=== PATIENT | male | born 1950 | race Caucasian/White ===

== ENCOUNTER → 2017-03-09 18:57 | Outpatient (CLI) | payer OTHER ==
[~2017-03-09 18:57] MED LIST: KEFLEX500 MG PO; METFORMIN HCL1000 MG PO; METFORMIN HCL500 MG; PERCOCET 5/3251 TAB PO; TAMS0.4C PO
== END | disposition home or self-care (01) ==
LOC: RAD 18:57
DX: I11.9 Hypertensive heart disease without heart failure (principal); E11.9 Type 2 diabetes mellitus without complications

== ENCOUNTER 2017-08-08 09:22 | Outpatient (CLI) | payer OTHER | END 2017-08-08 09:27 | disposition home or self-care (01) | LOC: LAB 09:22 | DX: N40.1 Benign prostatic hyperplasia with lower urinary tract symptoms (principal); I11.9 Hypertensive heart disease without heart failure; E11.9 Type 2 diabetes mellitus without complications; E78.2 Mixed hyperlipidemia; E03.8 Other specified hypothyroidism; D50.8 Other iron deficiency anemias; N18.2 Chronic kidney disease, stage 2 (mild); I10 Essential (primary) hypertension ==

== ENCOUNTER 2017-08-08 10:31 | Outpatient (CLI) | payer OTHER | END 2017-08-08 10:35 | disposition home or self-care (01) | LOC: SONOGRAMA 10:31 | DX: N18.3 Chronic kidney disease, stage 3 (moderate) (principal); N20.0 Calculus of kidney ==

== ENCOUNTER 2018-05-05 07:45 | Emergency (ER) | payer OTHER ==
[~2018-05-05] VITALS: Ht 177.8 cm; Wt 83.5 kg
[2018-05-05] MEDS ORDERED: VASOTEC5 MG (08:29)
== END 2018-05-05 09:30 | disposition home or self-care (01) ==
LOC: ER 07:45
DX: I16.1 Hypertensive emergency (principal); I10 Essential (primary) hypertension

== ENCOUNTER → 2018-08-01 15:28 | Outpatient (CLI) | payer OTHER ==
[~2018-08-01 15:28] MED LIST changes: +VASOTEC5 MG
== END | disposition home or self-care (01) ==
LOC: LAB 07-31 15:24
DX: E03.8 Other specified hypothyroidism (principal); D50.8 Other iron deficiency anemias; E78.2 Mixed hyperlipidemia; I11.9 Hypertensive heart disease without heart failure; E56.8 Deficiency of other vitamins; N39.0 Urinary tract infection, site not specified; Z12.11 Encounter for screening for malignant neoplasm of colon; E55.9 Vitamin D deficiency, unspecified; N19 Unspecified kidney failure; E11.9 Type 2 diabetes mellitus without complications; R80.8 Other proteinuria; C18.0 Malignant neoplasm of cecum; K92.1 Melena

== ENCOUNTER 2018-11-04 07:41 | Outpatient (CLI) | payer OTHER | END 2018-11-04 07:48 | disposition home or self-care (01) | LOC: LAB 07:41 | DX: D50.8 Other iron deficiency anemias (principal); E03.8 Other specified hypothyroidism; E78.2 Mixed hyperlipidemia; I11.9 Hypertensive heart disease without heart failure; E56.8 Deficiency of other vitamins; N39.0 Urinary tract infection, site not specified; Z12.11 Encounter for screening for malignant neoplasm of colon; E55.9 Vitamin D deficiency, unspecified; N19 Unspecified kidney failure; E11.9 Type 2 diabetes mellitus without complications; R80.8 Other proteinuria; C18.0 Malignant neoplasm of cecum; K92.1 Melena ==

== ENCOUNTER → 2018-12-16 16:04 | Outpatient (CLI) | payer OTHER | END | disposition home or self-care (01) | LOC: LAB 16:04 | DX: E03.8 Other specified hypothyroidism (principal) ==

== ENCOUNTER 2018-12-17 14:33 | Outpatient (CLI) | payer OTHER | END 2018-12-17 14:40 | disposition home or self-care (01) | LOC: SONOGRAMA 14:33 | DX: E03.8 Other specified hypothyroidism (principal); E04.2 Nontoxic multinodular goiter ==

== ENCOUNTER → 2018-12-26 11:15 | Outpatient (CLI) | payer OTHER | END | disposition home or self-care (01) | LOC: LAB 11:15 | DX: E21.0 Primary hyperparathyroidism (principal) ==

== ENCOUNTER → 2019-01-14 08:09 | Outpatient (CLI) | payer OTHER | END | disposition home or self-care (01) | LOC: LAB 08:09 | DX: E21.0 Primary hyperparathyroidism (principal) ==

== ENCOUNTER 2019-05-04 05:26 | Emergency (ER) | payer OTHER ==
[~2019-05-04] VITALS: Ht 177.8 cm; Wt 81.6 kg
== END 2019-05-04 18:22 | disposition home or self-care (01) ==
LOC: ER 05:26
DX: R07.89 Other chest pain (principal); R53.1 Weakness; T40.5X Poisoning by, adverse effect of and underdosing of cocaine; Y92.89 Other specified places as the place of occurrence of the external cause

== ENCOUNTER 2019-07-18 15:22 | Outpatient (CLI) | payer OTHER ==
[~2019-07-18 15:22] MED LIST changes: +ENALAPRIL MALEAT5 MG PO; +FORTAMET500 MG PO
== END 2019-07-18 15:31 | disposition home or self-care (01) ==
LOC: RAD 15:22
PROVIDERS: ATTEND General Practice
DX: M25.551 Pain in right hip (principal); M54.5 Low back pain

== ENCOUNTER 2019-07-31 11:30 | Outpatient (CLI) | payer OTHER | END 2019-07-31 11:42 | disposition home or self-care (01) | LOC: MRI 11:30 | PROVIDERS: ATTEND Internal Medicine | DX: M54.5 Low back pain (principal); S32.030A Wedge compression fracture of third lumbar vertebra, initial encounter for closed fracture | CPT/HCPCS: 72148 ==

== ENCOUNTER → 2019-07-31 12:43 | Outpatient (CLI) | payer OTHER | END | disposition home or self-care (01) | LOC: LAB 12:43 | PROVIDERS: ATTEND Internal Medicine | DX: D64.89 Other specified anemias (principal); I10 Essential (primary) hypertension; E11.9 Type 2 diabetes mellitus without complications; E78.00 Pure hypercholesterolemia, unspecified; N39.0 Urinary tract infection, site not specified; E55.9 Vitamin D deficiency, unspecified; R80.8 Other proteinuria; Z12.11 Encounter for screening for malignant neoplasm of colon; R19.5 Other fecal abnormalities; N40.0 Benign prostatic hyperplasia without lower urinary tract symptoms ==

== ENCOUNTER 2019-08-04 16:17 | Outpatient (CLI) | payer OTHER | END 2019-08-04 16:27 | disposition home or self-care (01) | LOC: SONOGRAMA 16:17 | PROVIDERS: ATTEND Internal Medicine | DX: E04.1 Nontoxic single thyroid nodule (principal) ==

== ENCOUNTER 2021-03-14 11:04 | Outpatient (CLI) | payer OTHER | END 2021-03-14 11:05 | disposition home or self-care (01) | LOC: TOM 11:04 | PROVIDERS: ATTEND Internal Medicine Cardiovascular Disease | DX: I10 Essential (primary) hypertension (principal); R41.2 Retrograde amnesia; G30.8 Other Alzheimer's disease ==

== ENCOUNTER 2023-03-06 10:02 | Outpatient (CLI) | payer OTHER | END 2023-03-06 10:08 | disposition home or self-care (01) | LOC: SONOGRAMA 10:02 | PROVIDERS: ATTEND Surgery | DX: N12 Tubulo-interstitial nephritis, not specified as acute or chronic (principal) ==

== ENCOUNTER → 2023-10-14 | Emergency (ER) | payer OTHER ==
[~2023-10-14] VITALS: Ht 175.3 cm; Wt 74.8 kg
[~2023-10-14] MED LIST changes: +CHILDREN'S ASPI81 MG; +GLUMETZA500 MG; +METFORMIN HCL500 M3; +METFORMIN HCL500 M3 PO; +VASOTEC10 MG; +VASOTEC10 MG PO
[2023-10-14 11:35] LABS: HEMATOCRIT 38.4 % (39.0-48.0); HEMOGLOBIN 13.3 g/dL (13-16.00); MEAN CELL VOLUME 90.3 fL (80.0-100.00); MEAN CORPUSCULAR HEMOGLOBIN 31.3 pg (27.00-32.0); MEAN CORPUSCULAR HGB CONC 34.7 g/dl (32.0-36.0); PLATELET COUNT 190 K/uL (150-450); RED BLOOD COUNT 4.25 M/uL (4.00-6.00)
[2023-10-14 12:03] LABS: CALCIUM 8.7 mg/dL (8.5-10.1); CREATININE SERUM 0.7 mg/dL (0.70-1.30); GFR 110.54; POTASSIUM 3.91 mEq/L (3.5-5.1)
== END | disposition home or self-care (01) ==
LOC: ER 10:09
PROVIDERS: General Practice
DX: I10 Essential (primary) hypertension (principal); T60.91XA Toxic effect of unspecified pesticide, accidental (unintentional), initial encounter

== ENCOUNTER 2023-11-06 15:19 | Outpatient (CLI) | payer OTHER | END 2023-11-06 15:20 | disposition home or self-care (01) | LOC: SONOGRAMA 15:19 | PROVIDERS: ATTEND Urology | DX: N40.0 Benign prostatic hyperplasia without lower urinary tract symptoms (principal) ==

== ENCOUNTER 2023-11-06 16:07 | Outpatient (CLI) | payer OTHER | END 2023-11-06 16:14 | disposition home or self-care (01) | LOC: LAB 16:07 | PROVIDERS: ATTEND Urology | DX: N40.0 Benign prostatic hyperplasia without lower urinary tract symptoms (principal) ==

== ENCOUNTER 2023-12-11 13:02 | Emergency (ER) | payer OTHER ==
[~2023-12-11] VITALS: Ht 175.3 cm; Wt 74.8 kg
[2023-12-11] MEDS ORDERED: DIPHENHYDRAMINE HCL 50 MG/ML VIAL 1ML IV STA (13:50)
[2023-12-11] MEDS ORDERED: DEXAMETHASONE SODIUM PHOSPHATE 4 MG/ML VIAL IV STA (13:51)
[2023-12-11 14:50] LABS: HEMATOCRIT 39.9 % (39.0-48.0); HEMOGLOBIN 13.7 g/dL (13-16.00); MEAN CELL VOLUME 91.5 fL (80.0-100.00); MEAN CORPUSCULAR HEMOGLOBIN 31.4 pg (27.00-32.0); MEAN CORPUSCULAR HGB CONC 34.3 g/dl (32.0-36.0); PLATELET COUNT 184 K/uL (150-450); RED BLOOD COUNT 4.36 M/uL (4.00-6.00); RED CELL DISTRIBUTION WIDTH 13.6 % (11.5-14.5)
[2023-12-11 15:16] LABS: CREATININE SERUM 0.72 mg/dL (0.70-1.30); GFR 107.01; POTASSIUM 4.51 mEq/L (3.5-5.1)
[2023-12-11] MEDS ORDERED: ZYRTEC10 MG PO (16:33)
[2023-12-11] MEDS ORDERED: CLOBETASOL EMOL15 GM TOP (16:33)
== END 2023-12-11 16:55 | disposition home or self-care (01) ==
LOC: ER 13:02
PROVIDERS: General Practice
DX: R53.81 Other malaise (principal); L24.7 Irritant contact dermatitis due to plants, except food; I10 Essential (primary) hypertension; E11.9 Type 2 diabetes mellitus without complications; Z79.84 Long term (current) use of oral hypoglycemic drugs
CPT/HCPCS: 36415; 96365; 99282; J1100; J1200

== ENCOUNTER 2024-02-14 22:20 | Emergency (ER) | payer OTHER ==
[~2024-02-14] VITALS: Ht 175.3 cm; Wt 74.8 kg
[~2024-02-14 22:20] MED LIST changes: +CLOBETASOL EMOL15 GM TOP; +ZYRTEC10 MG PO
[2024-02-14] MEDS ORDERED: DIPHENHYDRAMINE HCL 50 MG/ML VIAL 1ML IM ONE (23:15)
[2024-02-14] MEDS ORDERED: ONDANSETRON HCL 2 MG/ML VIAL IM ONE (23:15)
[2024-02-14] MEDS ORDERED: METHYLPREDNISOLONE SOD SUCC 40 MG VIAL IM ONE (23:15)
[2024-02-14 23:38] LABS: HEMATOCRIT 39.8 % (39.0-48.0); HEMOGLOBIN 13.5 g/dL (13-16.00); MEAN CELL VOLUME 91.8 fL (80.0-100.00); MEAN CORPUSCULAR HEMOGLOBIN 31.1 pg (27.00-32.0); MEAN CORPUSCULAR HGB CONC 33.9 g/dl (32.0-36.0); PLATELET COUNT 197 K/uL (150-450); RED BLOOD COUNT 4.34 M/uL (4.00-6.00); RED CELL DISTRIBUTION WIDTH 13.2 % (11.5-14.5)
== END 2024-02-15 00:32 | disposition home or self-care (01) ==
LOC: ER 22:22
PROVIDERS: General Practice
DX: L23.7 Allergic contact dermatitis due to plants, except food (principal); E11.9 Type 2 diabetes mellitus without complications; Z79.84 Long term (current) use of oral hypoglycemic drugs

== ENCOUNTER 2024-02-17 20:48 | Emergency (ER) | payer OTHER ==
[~2024-02-17] VITALS: Ht 170.2 cm; Wt 74.8 kg
[2024-02-18] MEDS ORDERED: KETOROLAC TROMETHAMINE 10 MG TABLET PO STA (00:36)
[2024-02-18 01:20] LABS: HEMATOCRIT 40.7 % (39.0-48.0); HEMOGLOBIN 13.7 g/dL (13-16.00); MEAN CELL VOLUME 92.8 fL (80.0-100.00); MEAN CORPUSCULAR HEMOGLOBIN 31.2 pg (27.00-32.0); MEAN CORPUSCULAR HGB CONC 33.6 g/dl (32.0-36.0); PLATELET COUNT 200 K/uL (150-450); RED BLOOD COUNT 4.39 M/uL (4.00-6.00); RED CELL DISTRIBUTION WIDTH 13.1 % (11.5-14.5)
[2024-02-18 01:41] LABS: ALBUMIN 3.6 gm/dL (3.4-5.0); BILIRUBIN TOTAL 0.44 mg/dL (0.3-1.2); CALCIUM 8.9 mg/dL (8.5-10.1); CREATININE SERUM 0.72 mg/dL (0.70-1.30); GFR 106.71; GLOBULINA 3.6 G/DL (2.4-3.5); POTASSIUM 3.45 mEq/L (3.5-5.1); TOTAL PROTEIN 7.2 gm/dL (6.4-8.2)
[2024-02-18 04:03] LABS: URINE APPEARANCE Clear; URINE BILIRRUBIN Negative (NEGATIVE); URINE BLOOD Negative; URINE COLOR Yellow; URINE GLUCOSE Negative (NEGATIVE); URINE KETONE Negative (NEGATIVE); URINE LEUKOCYTE Negative; URINE NITRATE Negative; URINE PROTEIN Negative (NEGATIVE); URINE UROBILINOGEN 0.2 E.U./dl
[2024-02-18 04:08] LABS: URINE EPITHELIAL CELLS 2.6 uL (0.0-38.8)
[2024-02-18 04:09] LABS: URINE BACTERIA 1.2 uL (0.0-1933); URINE RBC 0.4 uL (0.0-20.8); URINE WBC 0.3 uL (0.0-23.2)
[2024-02-18] MEDS ORDERED: NABUMETONE750 MG PO (05:23)
[2024-02-18] MEDS ORDERED: MECLIZINE HCL25 MG PO (05:23)
== END 2024-02-18 05:25 ==
LOC: ER 20:50
PROVIDERS: General Practice
DX: R55 Syncope and collapse (principal); E11.9 Type 2 diabetes mellitus without complications; Z79.84 Long term (current) use of oral hypoglycemic drugs; I10 Essential (primary) hypertension; S39.83XA Other specified injuries of pelvis, initial encounter; W18.39XA Other fall on same level, initial encounter; Y93.89 Activity, other specified; Y92.012 Bathroom of single-family (private) house as the place of occurrence of the external cause

== ENCOUNTER 2025-01-07 10:02 | Outpatient (CLI) | payer OTHER ==
[~2025-01-07 10:02] MED LIST changes: +MECLIZINE HCL25 MG PO; +NABUMETONE750 MG PO
== END 2025-01-07 10:09 | disposition home or self-care (01) ==
LOC: RAD 10:02
PROVIDERS: ATTEND Urology
DX: N13.0 Hydronephrosis with ureteropelvic junction obstruction (principal)